=== PATIENT | female | born 1980 | race Caucasian/White ===

== ENCOUNTER 2018-07-21 12:42 | Outpatient (CLI) | payer BC ==
--- NOTE | 2018-07-21 14:46 | ULT ---
LEFT UNILATERAL BREAST ULTRASOUND LIMITED: HISTORY: This 38-year-old female presents with a palpable finding. FINDINGS: There is a 1.7 x 2.5 x 2.1 cm diameter benign cyst in the 3 o'clock position of the left breast cm f rom the nipple corresponding to the palpable finding as well as the mammographic finding. IMPRESSION: BIRADS category 2, benign findings. Benign cyst at 3 o'clock 6 cm from the nipple. Continued annual followup screening mammography. POS: OFF
== END 2018-07-21 12:43 | disposition home or self-care (01) ==
LOC: BICMAMMO 12:42
PROVIDERS: ATTEND Obstetrics & Gynecology
DX: N63.20 Unspecified lump in the left breast, unspecified quadrant (principal); Z80.3 Family history of malignant neoplasm of breast; N60.02 Solitary cyst of left breast
CPT/HCPCS: 77066; G0279